=== PATIENT | female | born 1970 | race Caucasian/White ===

== ENCOUNTER 2016-12-10 09:03 | Emergency (ER) | payer MEDICARE, MEDICAID ==
[2016-12-10] MEDS ORDERED: HYDROmorphone 2 MG/ML SDV IVPUSH ONE (10:10)
[2016-12-10] MEDS ORDERED: Ondansetron 4 MG/2 ML SDV IVPUSH ONE (10:10)
[2016-12-10] MEDS ORDERED: Sodium Chloride 0.9% 10 ML Syringe FLUSH PRN (10:14)
[2016-12-10] MEDS ORDERED: Sodium Chloride 0.9% 1,000 ML IV ONE ×2 (10:55→11:15)
[2016-12-10] MEDS ORDERED: HYDROmorphone 2 MG/ML SDV IV ONE (11:14)
[2016-12-10] MEDS ORDERED: LORazepam 2 MG/ML MDV IVPUSH STA (12:28)
[2016-12-10] MEDS ORDERED: Lidocaine 2% Jelly 5 ML Urojet MUCMEM ONE (12:36)
[2016-12-10] MEDS ORDERED: Pantoprazole 40 MG Vial IVPUSH ONE (13:19)
[2016-12-10] MEDS ORDERED: Sodium Chloride 0.9% 1,000 ML IV SCH (13:45)
[2016-12-10 16:39] VITALS: BP 135/78
--- NOTE | 2016-12-12 14:04 | ER ---
DATE SEEN: 12/10/2016 TIME SEEN: The patient was seen at 1110 hours. HISTORY OF PRESENT ILLNESS: This 46-year-old long-term diabetic has had 10 years pacemaker for gastric outlet obstruction - gastric pacemaker for gastroparesis, has significant autonomic gastrointestinal dysfunction also. 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 She has had many years of diabetes. At 0400 hours, had onset of severe pain. She had a supper of hot meat sandwiches, which her ate and he did not get sick. She has had vomiting, 5 episodes since 0400 hours, and diarrhea several times. She has no control of her bowel movements. She notes that she has bowel movements more frequently because of autonomic paresis from her diabetes. Her glucoses run from 160 to 190s. In general, does reasonably well. She has an insulin pump and takes 50 units of Humalog daily per 24 hours. Today, she has symptoms of more significant bloating and nausea, but she has it intermittently, but is worse than usual. PAST MEDICAL HISTORY: x2. 2, para 2-0-0-2. She still has her appendix, gallbladder, and no previous bowel surgery. She has had diabetes for 30 years. REVIEW OF SYSTEMS: Otherwise negative. She denies headache, neck stiffness, fever, chills, cough, sinusitis, sore throat, or shortness of breath. No abdominal discomfort, no diarrhea except for that noted above, and also no urine retention. Denies frequency, urgency, or dysuria. She has had renal stones in the past, but denies myalgias, except for when her glucose is not in control. Denies arthritis. No psychiatric symptoms of depression. PHYSICAL EXAMINATION: VITAL SIGNS: Blood pressure 123/71, heart rate 89 and regular, respirations 20, oxygen saturation 100% on room air, and temperature 36.2 centigrade. GENERAL: The patient is alert. She has marked pain, is markedly obese, moderately distraught. She is lying on her side in a position. HEENT: PERRLA intact. Pharynx without abnormality. Mucosa is dry. NECK: Supple. No thyromegaly or masses in neck. No cervical adenopathy. LUNGS: Clear to auscultation without rales, rhonchi, or wheezes. HEART: S1, S2. No murmur. No irregular rate or rhythm. Sinus tachycardia noted. ABDOMEN: Generalized abdominal discomfort with moderate guarding. Mild heel drop discomfort. No heel tap discomfort. Mild rebound. No CVA percussion tenderness. PELVIC: Not performed. RECTAL: Not performed. EXTREMITIES: Lower extremities without edema. Deep tendon reflexes in upper and lower extremities symmetrical 1+, normoactive. NEUROLOGIC: Cranial nerves 2 through 12 intact. Oriented x3. She is very appropriate. DIAGNOSTIC DATA: CT of the abdomen demonstrated distention of the stomach with extensive fluid in the stomach. She had duodenitis with mild dilation of the duodenum, mild dilation of small bowel loops with moderate air-fluid levels. Transition point noted in the right lower quadrant. Findings consistent with partial small bowel obstruction with some gastric ileus/paresis superimposed on small bowel obstruction. Adhesions versus subtle internal hernia cannot be distinguished. PLAN: The patient to discuss with surgeon at [place] and transfer for further care. NG tube was placed. The patient received 2 doses of Dilaudid and still has pain and discomfort and also Ativan 1 mg given before transfer to [place]. The patient will be transferred by ambulance. She received 2000 plus mL of saline. LABORATORY FINDINGS: White count 19,500, PMNs 81, lymphocytes 14, monos 5, no bands, no eosinophils, and hemoglobin 13.7. Sodium 134, potassium 4.2, chloride 101, bicarb 24, BUN 28, creatinine 1.4, GFR 40, glucose 387, and hemoglobin A1c 9.5. ASSESSMENT: Gastroparesis with pacemaker, 30 years insulin-dependent diabetic, 10 years with a gastric pacemaker with pertinent gastroparesis. The patient currently has neutrophilic leukocytosis with hyperglycemia. No osmotic diabetic ketoacidosis with fair control of diabetes at 9.5, which suggests probably her glucose runs around 200. Mild BUN and creatinine changes suggest GFR of 40% with chronic kidney disease stage III. Mild dehydration. The patient was flushed with fluid. She has not had her insulin, will give a dose of insulin before she leaves. Also, the patient's status was discussed with the hospitalist at [facility], and also Dr. Womack will be calling us back, the surgeon. As yet I have not heard from him at 1245 hours, but expect his call will be coming shortly. Arrangements made for transfer. /[id number] [id number] GOVIND/BLANCA
== END 2016-12-10 14:04 ==
LOC: FB.ED 09:03
DX: E11.43 Type 2 diabetes mellitus with diabetic autonomic (poly)neuropathy (principal); K31.84 Gastroparesis; E86.0 Dehydration; D72.828 Other elevated white blood cell count; E11.65 Type 2 diabetes mellitus with hyperglycemia; E11.22 Type 2 diabetes mellitus with diabetic chronic kidney disease; N18.3 Chronic kidney disease, stage 3 (moderate)
CPT/HCPCS: 36415; 43752; 74176; 80053; 82962; 83036; 83605; 85025; 96361; 96374; 96375; 96376; 99285; C9113; J1170; J2060; J2405; J7040

== ENCOUNTER 2017-05-27 13:25 | Emergency (ER) | payer MEDICARE, MEDICAID ==
[2017-05-27] MEDS ORDERED: Albuterol/Ipratropium 3.0-0.5 MG/3 ML Neb Soln NEB ONE (14:03)
[2017-05-27] MEDS ORDERED: Ketorolac 60 MG/2 ML SDV IM ONE (14:04)
[2017-05-27] MEDS ORDERED: traMADol 50 MG Tab PO ONE (14:18)
--- NOTE | 2017-05-27 15:28 | EDM.PDOC ---
ED HPI GENERAL MEDICAL PROBLEM - General Chief Complaint: Genitourinary Problem Stated Complaint: POSSIBLE KIDNEY INFECTION Time Seen by Provider: 05/27/17 13:25 Source of Information: Reports: Patient History Limitations: Reports: No Limitations - History of Present Illness INITIAL COMMENTS - FREE TEXT/NARRATIVE: 46 y.o.w.f with multiple medical issues, including Metabolic syndrome, came to the ed due to a cough, SOB and right sided flank pain. Pt has kidney stones in the past. Her "breathing machine" is broken. Because of that, she could not give herself a Albuterol inhaler at home. Pt denied trauma. No N/V/D. or any other acute medical issues. BP 135/74 pulse 87 RR 18 Pulse ox 98% on RA temp 36.8 Onset Date: 05/27/17 Onset Time: 09:00 Duration: Hour(s):, Intermittent Location: Reports: Back Quality: Reports: Burning, Dull, Pressure Severity: Moderate Improves with: Reports: Rest Worsens with: Reports: Movement Context: Reports: Other (Kidenystones in the past) Associated Symptoms: Reports: Cough, Shortness of Breath - Related Data Allergies Allergy/AdvReac Type Severity Reaction Status Date / Time adhesive Allergy Itching Verified 05/27/17 16:19 Home Meds: Home Meds Aspirin 325 mg PO DAILY 12/03/12 [History] Cholecalciferol (Vitamin D3) [Vitamin D3] 1,000 unit PO DAILY 12/03/12 [History] Cilostazol [Pletal] 100 mg PO BID 12/03/12 [History] Esomeprazole [NexIUM] 40 mg PO BID 12/03/12 [History] Furosemide [Lasix] 20 mg PO DAILY 12/03/12 [History] Glucagon,Human Recombinant [Glucagen] 1 mg IJ ONETIME PRN 12/03/12 [History] Pramipexole [Mirapex] 0.5 mg PO BEDTIME 12/03/12 [History] Simvastatin [Zocor] 20 mg PO BEDTIME 12/03/12 [History] cloNIDine [Catapres] 0.2 tab PO BEDTIME 12/03/12 [History] lamoTRIgine [LaMICtal] 150 mg PO BEDTIME 12/03/12 [History] Lisinopril [Prinivil] 2.5 mg PO DAILY 09/13/15 [History] Venlafaxine [Effexor XR] 150 tab PO BID 09/13/15 [History] Insulin Lispro [Humalog] 1 unit SUBCUT ASDIRECTED 11/26/15 [History] Lurasidone HCl [Latuda] 40 mg PO DAILY PRN 11/26/15 [History] Dextroamphetamine/Amphetamine [Dextroamp-Amphet ER] 20 mg PO DAILY 12/10/16 [ History] Dextroamphetamine/Amphetamine [Dextroamp-Amphet ER] 30 mg PO DAILY 12/10/16 [ History] Albuterol Sulfate [Proair Hfa] 2 puff INH Q4H PRN 05/27/17 [History] Budesonide [Pulmicort] 1 ampule INH BID 05/27/17 [History] Ciprofloxacin HCl [Cipro] 500 mg PO BID #20 tablet 05/27/17 [Rx] Dextroamphetamine/Amphetamine [Dextroamp-Amphetamin 20 mg Tab] 20 mg PO 1800 03/15 [History] traMADol [Ultram] 50 mg PO Q4H PRN #10 tab 05/27/17 [Rx] Past Medical History HEENT History: Reports: None Cardiovascular History: Reports: High Cholesterol, Hypertension Respiratory History: Reports: Asthma Gastrointestinal History: Reports: GERD, Other (See Below) Other Gastrointestinal History: hx gastroparesis, has gastric pacemaker Genitourinary History: Reports: Renal Disease, UTI, Recurrent, Other (See Below) Other Genitourinary History: 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/BYN History: Musculoskeletal History: Reports: Fracture, Fibromyalgia Other Musculoskeletal History: hx L ankle fx, L wrist, L finger growth place Neurological History: Reports: Concussion, Migraines, Neuropathy, Diabetic Psychiatric History: Reports: ADHD, Anxiety, Bipolar, Depression, Psych Hospitalization(s) Endocrine/Metabolic History: Reports: Diabetes, Type I, Obesity/BMI 30+, Other ( See Below) Other Endocrine/Metabolic History: has insulin pump Hematologic History: Reports: Anemia, B12 Deficiency - Infectious Disease History Infectious Disease History: Reports: Chicken Pox - Past Surgical History HEENT Surgical History: Reports: Adenoidectomy, Eye Surgery, Tonsillectomy GI Surgical History: Reports: Colonoscopy, EGD Female Surgical History: Reports: Section Other Female Surgeries/Procedures: CS x 2 Musculoskeletal Surgical History: Reports: Other (See Below) Other Musculoskeletal Surgeries/Procedures:: 2&3rd toe surg to R foot, L 2nd toe surgery, Social & Family History - Family History Family Medical History: Noncontributory - Tobacco Use Smoking Status *Q: Never Smoker Second Hand Smoke Exposure: No - Caffeine Use Caffeine Use: Reports: Coffee, Soda - Recreational Drug Use Recreational Drug Use: No ED ROS GENERAL - Review of Systems Review Of Systems: See Below Constitutional: Reports: No Symptoms HEENT: Reports: No Symptoms Respiratory: Reports: Shortness of Breath, Wheezing, Cough Cardiovascular: Reports: No Symptoms Endocrine: Reports: No Symptoms GI/Abdominal: Reports: Other (right flank pain) : Reports: No Symptoms Musculoskeletal: Reports: No Symptoms Skin: Reports: No Symptoms Neurological: Reports: No Symptoms Psychiatric: Reports: No Symptoms Hematologic/Lymphatic: Reports: No Symptoms Immunologic: Reports: No Symptoms ED EXAM, RENAL/ - Physical Exam Exam: See Below Exam Limited By: No Limitations General Appearance: Alert, WD/WN, Moderate Distress Eye Exam: Bilateral Eye: Normal Inspection Ears: Normal External Exam Nose: Normal Inspection Throat/Mouth: Normal Lips, No Airway Compromise Head: Atraumatic, Normocephalic Neck: Normal Inspection, Supple, Non-Tender, Full Range of Motion Respiratory/Chest: Respiratory Distress, Decreased Breath Sounds, Rhonchi, Wheezing, Prolonged Expiration Cardiovascular: Normal Peripheral Pulses, Regular Rate, Rhythm, No Edema GI/Abdominal: Normal Bowel Sounds, Soft, Non-Tender, No Organomegaly, No Distention, No Abnormal Bruit (Female) Exam: Deferred Rectal (Female) Exam: Deferred Back Exam: Normal Inspection, Full Range of Motion Extremities: Normal Inspection, Normal Range of Motion, Non-Tender, No Pedal Edema, Normal Capillary Refill Neurological: Alert, Oriented, CN II-XII Intact, Normal Cognition, Normal Gait, No Motor/Sensory Deficits Psychiatric: Normal Affect, Normal Mood Skin Exam: Warm, Dry, Intact, Normal Color, No Rash Lymphatic: No Adenopathy Course - Vital Signs Text/Narrative:: 46 y.o.w.f with multiple medical issues, including Metabolic syndrome, came to the ed due to a cough, SOB and right sided flank pain. Pt has kidney stones in the past. Her "breathing machine" is broken. Because of that, she could not give herself a Albuterol inhaler at home. Pt denied trauma. No N/V/D. or any other acute medical issues. BP 135/74 pulse 87 RR 18 Pulse ox 98% on RA temp 36.8 PE: Obese 46 y.o. f with sob and r flank pain Imaging: CXR: NAD CT abd/pelvis: small kidneystone left side, Gastric pacemaker , Constipation, enlarged Uterus Labs: Nl WBC, BUN 19, Cr 1.3 GFR 44 A1C 9.9 Glc 147 UA: Micr. Hematuria U Glc > 1000 Impression: Kidney stone left side, acute bronchitis, Asthma exacerbation, low back pain. Constipation Tx: Duoneb, Levoqine, Ultram Reeam: Improved Plan: D/C with instructions Last Recorded V/S: Last Vital Signs Temp 36.8 C 05/27/17 16:13 Pulse 86 05/27/17 16:13 Resp 18 05/27/17 16:13 BP 99/56 L 05/27/17 16:13 Pulse Ox 99 05/27/17 16:13 - Orders/Labs/Meds Orders: Active Orders 24 hr Category Date Time Status Accu Check [Blood Glucose Check, Bedside] [RC] ONETIME Care 05/27/17 13:53 Active RT Aerosol Therapy [RC] ASDIRECTED Care 05/27/17 14:04 Active Abdomen Pelvis wo Cont [CT] Stat Exams 05/27/17 15:19 Taken Chest 2V [CR] Stat Exams 05/27/17 14:03 Taken GLUCOSE,POC [POC] Routine Lab 05/27/17 13:55 Received UA W/MICROSCOPIC [URIN] Stat Lab 05/27/17 13:50 Ordered Labs: Laboratory Tests 05/27/17 05/27/17 05/27/17 Range/Units 13:50 14:34 14:45 WBC 7.4 (4.5-12.0) X10-3/uL RBC 4.32 (3.23-5.20) x10(6)uL Hgb 13.4 (11.5-15.5) g/dL Hct 39.5 (30.0-51.3) % MCV 91.4 (80-96) fL MCH 31.0 (27.7-33.6) pg MCHC 33.9 (32.2-35.4) g/dL RDW 13.4 (11.5-15.5) % Plt Count 203 (125-369) X10(3)uL MPV 9.0 (7.4-10.4) fL Neut % (Auto) 51.0 (46-82) % Lymph % (Auto) 39.3 H (13-37) % [place] % (Auto) 8.9 (4-12) % Eos % (Auto) 0 L (1.0-5.0) % Baso % (Auto) 1 (0-2) % Neut # (Auto) 3.6 (1.6-8.3) # Lymph # (Auto) 2.9 (0.6-5.0) # [place] # (Auto) 0.7 (0.0-1.3) # Eos # (Auto) 0.0 (0.0-0.8) # Baso # (Auto) 0.1 (0.0-0.2) # Sodium 142 (135-145) mmol/L Potassium 3.7 (3.5-5.3) mmol/L Chloride 102 (100-110) mmol/L Carbon Dioxide 31 (21-32) mmol/L BUN 19 H (7-18) mg/dL Creatinine 1.3 H (0.55-1.02) mg/dL Est Cr Clr Drug Dosing TNP Estimated GFR (MDRD) 44 L (>60) BUN/Creatinine Ratio 14.6 (9-20) Glucose 146 H (80-116) mg/dL Hemoglobin A1c (4.5-6.2) % Calcium 9.3 (8.6-10.2) mg/dL Total Bilirubin 0.2 (0.1-1.3) mg/dL Direct Bilirubin 0.06 L (0.10-0.20) mg/dL AST 12 (5-25) IU/L ALT 17 (12-36) U/L Alkaline Phosphatase 148 H (56-112) IU/L Total Protein 7.4 (6.0-8.0) g/dL Albumin 3.3 L (3.5-5.2) g/dL Amylase 23 L (25-115) U/L Urine Color Yellow (YELLOW) Urine Appearance Clear (CLEAR) Urine pH 5.0 (5.0-6.5) Ur Specific [place] 1.010 (1.010-1.025) Urine Protein Negative (NEGATIVE) mg/dL Urine Glucose (UA) >1000 H (NEGATIVE) mg/dL Urine Ketones Negative (NEGATIVE) mg/dL Urine Occult Blood Small (NEGATIVE) Urine Nitrite Negative (NEGATIVE) Urine Bilirubin Negative (NEGATIVE) Urine Urobilinogen Normal (NEGATIVE) mg/dL Ur Leukocyte Esterase Negative (NEGATIVE) Urine RBC 10-20 H (0) Urine WBC 0-5 (0) Ur Squamous Epith Cells Few H (NS,R,O) Urine Bacteria Few H (NS) 05/27/17 Range/Units 14:45 WBC (4.5-12.0) X10-3/uL RBC (3.23-5.20) x10(6)uL Hgb (11.5-15.5) g/dL Hct (30.0-51.3) % MCV (80-96) fL MCH (27.7-33.6) pg MCHC (32.2-35.4) g/dL RDW (11.5-15.5) % Plt Count (125-369) X10(3)uL MPV (7.4-10.4) fL Neut % (Auto) (46-82) % Lymph % (Auto) (13-37) % [place] % (Auto) (4-12) % Eos % (Auto) (1.0-5.0) % Baso % (Auto) (0-2) % Neut # (Auto) (1.6-8.3) # Lymph # (Auto) (0.6-5.0) # [place] # (Auto) (0.0-1.3) # Eos # (Auto) (0.0-0.8) # Baso # (Auto) (0.0-0.2) # Sodium (135-145) mmol/L Potassium (3.5-5.3) mmol/L Chloride (100-110) mmol/L Carbon Dioxide (21-32) mmol/L BUN (7-18) mg/dL Creatinine (0.55-1.02) mg/dL Est Cr Clr Drug Dosing Estimated GFR (MDRD) (>60) BUN/Creatinine Ratio (9-20) Glucose (80-116) mg/dL Hemoglobin A1c 9.9 H (4.5-6.2) % Calcium (8.6-10.2) mg/dL Total Bilirubin (0.1-1.3) mg/dL Direct Bilirubin (0.10-0.20) mg/dL AST (5-25) IU/L ALT (12-36) U/L Alkaline Phosphatase (56-112) IU/L Total Protein (6.0-8.0) g/dL Albumin (3.5-5.2) g/dL Amylase (25-115) U/L Urine Color (YELLOW) Urine Appearance (CLEAR) Urine pH (5.0-6.5) Ur Specific [place] (1.010-1.025) Urine Protein (NEGATIVE) mg/dL Urine Glucose (UA) (NEGATIVE) mg/dL Urine Ketones (NEGATIVE) mg/dL Urine Occult Blood (NEGATIVE) Urine Nitrite (NEGATIVE) Urine Bilirubin (NEGATIVE) Urine Urobilinogen (NEGATIVE) mg/dL Ur Leukocyte Esterase (NEGATIVE) Urine RBC (0) Urine WBC (0) Ur Squamous Epith Cells (NS,R,O) Urine Bacteria (NS) Meds: Medications Discontinued Medications Generic Name Dose Route Start Last Admin Trade Name Freq PRN Reason Stop Dose Admin Albuterol/Ipratropium 3 ml 05/27/17 14:03 05/27/17 14:13 Duoneb 3.0-0.5 Mg/3 Ml NEB 05/27/17 14:04 3 ml ONETIME ONE Administration Ketorolac Tromethamine 60 mg 05/27/17 14:04 05/27/17 14:36 Toradol IM 05/27/17 14:05 Not Given ONETIME ONE Levofloxacin 500 mg 05/27/17 16:45 05/27/17 16:49 Levaquin PO 05/27/17 16:46 500 mg ONETIME STA Administration Tramadol HCl 100 mg 05/27/17 14:18 05/27/17 14:38 Ultram PO 05/27/17 14:19 100 mg ONETIME ONE Administration Departure - Departure Time of Disposition: 16:34 Disposition: Home, Self-Care 01 Condition: Good Clinical Impression: Microscopic hematuria, Bronchitis Asthma attack Qualifiers: Asthma severity: moderate Asthma persistence: unspecified Qualified Code(s): J45.901 - Unspecified asthma with (acute) exacerbation Constipation Qualifiers: Constipation type: slow transit constipation Qualified Code(s): K59.01 - Slow transit constipation - Discharge Information Prescriptions: Ciprofloxacin HCl [Cipro] 500 mg PO BID #20 tablet traMADol [Ultram] 50 mg PO Q4H PRN #10 tab PRN Reason: for severe pain only Instructions: Kidney Stones, Rwpt-ti-Lkow, Tramadol tablets, Ciprofloxacin tablets Referrals: Dylan Molina MD [Primary Care Provider] - Forms: ED Department Discharge Additional Instructions: Please increase water intake, please take the meds as recommended, please use your inhaler for cough and shortness of breath, please f/u in 3-5 days to repeat the urine analysis, please follow up with your PMD, come back to the ed if your symptoms get worse acutely - My Orders Last 24 Hours: My Active Orders 05/27/17 13:50 UA W/MICROSCOPIC [URIN] Stat 05/27/17 13:53 Accu Check [Blood Glucose Check, Bedside] [RC] ONETIME 05/27/17 13:55 GLUCOSE,POC [POC] Routine 05/27/17 14:03 Chest 2V [CR] Stat 05/27/17 14:04 RT Aerosol Therapy [RC] ASDIRECTED 05/27/17 15:19 Abdomen Pelvis wo Cont [CT] Stat - Assessment/Plan Last 24 Hours: My Active Orders 05/27/17 13:50 UA W/MICROSCOPIC [URIN] Stat 05/27/17 13:53 Accu Check [Blood Glucose Check, Bedside] [RC] ONETIME 05/27/17 13:55 GLUCOSE,POC [POC] Routine 05/27/17 14:03 Chest 2V [CR] Stat 05/27/17 14:04 RT Aerosol Therapy [RC] ASDIRECTED 05/27/17 15:19 Abdomen Pelvis wo Cont [CT] Stat
[2017-05-27 16:33] VITALS: BP 99/56
[2017-05-27] MEDS ORDERED: Levofloxacin 500 MG Tab PO STA (16:45)
--- NOTE | 2017-05-28 14:39 | CR ---
INDICATION: Cough. CHEST: PA and lateral views of the chest 05/27/2017 were compared with 2009. The heart, mediastinum, and bony thorax were unremarkable. No consolidating pneumonia or effusion could be identified. IMPRESSION: No acute process. MTDD
== END 2017-05-27 16:45 | disposition home or self-care (01) ==
LOC: FB.ED 13:25
DX: N20.0 Calculus of kidney (principal); J20.9 Acute bronchitis, unspecified; J45.901 Unspecified asthma with (acute) exacerbation; M54.5 Low back pain; K59.00 Constipation, unspecified; E78.00 Pure hypercholesterolemia, unspecified; I10 Essential (primary) hypertension; E10.9 Type 1 diabetes mellitus without complications; Z91.048 Other nonmedicinal substance allergy status; Z79.82 Long term (current) use of aspirin; Z79.899 Other long term (current) drug therapy
CPT/HCPCS: 36415; 71046; 74176; 80048; 80076; 81001; 82150; 82962; 83036; 85025; 94640; 99284; A9270-GY; J7620

== ENCOUNTER 2018-10-28 14:35 | Emergency (ER) | payer MEDICARE, MEDICAID ==
[2018-10-28] MEDS ORDERED: Lidocaine 1% 20 ML MDV INFILT ONE (14:36)
--- NOTE | 2018-10-28 15:39 | EDM.PDOC ---
ED HPI GENERAL MEDICAL PROBLEM - General Chief Complaint: General Stated Complaint: ABSCESS TOOTH Time Seen by Provider: 10/28/18 15:35 Source of Information: Reports: Patient History Limitations: Reports: No Limitations - History of Present Illness INITIAL COMMENTS - FREE TEXT/NARRATIVE: 47-year-old female who had some problems with her left upper tooth approximately 2-3 weeks ago and had a filling placed at that time. Last week she was getting her teeth cleaned and she had some soreness and pain in her left upper tooth and was told by the dentist that there was an infection there but he would have to do a root canal and would have to do that later she was not placed on any antibiotics at that time and it was fine except for some mild pain until Sunday when she began to notice redness and swelling in the area above the tooth and that has progressively worsened until she has a "bump" above the tooth that is tender and appears to have fluid. She has pain and her left upper jaw and tooth area that she rates as a 4/10. It is an aching and throbbing pain. No has generalized malaise with no measured fever but she has had chills. No nausea or vomiting. She has been eating and drinking normally. She is a diabetic and her blood sugars have been in the 60-140 range. There are no other associated signs or symptoms. There are no other modifying factors. 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 L upper tooth Pain Score (Numeric/FACES): 4 - Related Data Allergies Allergy/AdvReac Type Severity Reaction Status Date / Time adhesive Allergy Itching Verified 10/28/18 14:44 Home Meds: Home Meds Aspirin 325 mg PO DAILY 12/03/12 [History] Cholecalciferol (Vitamin D3) [Vitamin D3] 1,000 unit PO DAILY 12/03/12 [History] Cilostazol [Pletal] 100 mg PO BID 12/03/12 [History] Esomeprazole [NexIUM] 40 mg PO BID 12/03/12 [History] Furosemide [Lasix] 20 mg PO DAILY 12/03/12 [History] Glucagon,Human Recombinant [Glucagen] 1 mg IJ ONETIME PRN 12/03/12 [History] Pramipexole [Mirapex] 0.5 mg PO BEDTIME 12/03/12 [History] Simvastatin [Zocor] 20 mg PO BEDTIME 12/03/12 [History] cloNIDine [Catapres] 0.2 tab PO BEDTIME 12/03/12 [History] lamoTRIgine [LaMICtal] 150 mg PO BEDTIME 12/03/12 [History] Lisinopril [Prinivil] 2.5 mg PO DAILY 09/13/15 [History] Venlafaxine [Effexor XR] 150 tab PO BID 09/13/15 [History] Insulin Lispro [Humalog] 1 unit SUBCUT ASDIRECTED 11/26/15 [History] Lurasidone HCl [Latuda] 40 mg PO DAILY PRN 11/26/15 [History] Dextroamphetamine/Amphetamine [Dextroamp-Amphet ER] 20 mg PO DAILY 12/10/16 [ History] Dextroamphetamine/Amphetamine [Dextroamp-Amphet ER] 30 mg PO DAILY 12/10/16 [ History] Albuterol Sulfate [Proair Hfa] 2 puff INH Q4H PRN 05/27/17 [History] Budesonide [Pulmicort] 1 ampule INH BID PRN 05/27/17 [History] Dextroamphetamine/Amphetamine [Dextroamp-Amphetamin 20 mg Tab] 20 mg PO 1800 03/15 [History] Amoxicillin/Potassium Clav [Augmentin 875-125 Tablet] 1 each PO BID 9 Days #18 tablet 10/28/18 [Rx] Past Medical History Cardiovascular History: Reports: High Cholesterol, Hypertension Respiratory History: Reports: Asthma Gastrointestinal History: Reports: Chronic Diarrhea, GERD, Other (See Below) Other Gastrointestinal History: hx gastroparesis, has gastric pacemaker Genitourinary History: Reports: Renal Calculus, Renal Disease, UTI, Recurrent, Other (See Below) Other Genitourinary History: Chronic kidney disease 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: Musculoskeletal History: Reports: Arthritis, Back Pain, Chronic, Fracture, Fibromyalgia Other Musculoskeletal History: hx L ankle fx, L wrist, L finger growth place Neurological History: Reports: Concussion, Migraines, Neuropathy, Diabetic, Seizure Other Neuro History: hypoglycemic seizures Psychiatric History: Reports: ADHD, Anxiety, Bipolar, Depression, Psych Hospitalization(s) Endocrine/Metabolic History: Reports: Diabetes, Type I, Obesity/BMI 30+, Vitamin D Deficiency, Other (See Below) Other Endocrine/Metabolic History: has insulin pump Hematologic History: Reports: Anemia, B12 Deficiency - Infectious Disease History Infectious Disease History: Reports: Chicken Pox - Past Surgical History HEENT Surgical History: Reports: Adenoidectomy, Eye Surgery, Tonsillectomy GI Surgical History: Reports: Colonoscopy, EGD, Other (See Below) Other GI Surgeries/Procedures: gastric pacemaker Female Surgical History: Reports: Section Other Female Surgeries/Procedures: CS x 2 Neurological Surgical History: Reports: None Musculoskeletal Surgical History: Reports: Other (See Below) Other Musculoskeletal Surgeries/Procedures:: 2&3rd toe surg to R foot, L 2nd toe surgery, Social & Family History - Tobacco Use Smoking Status *Q: Former Smoker Years of Tobacco use: 20 Used Tobacco, but Quit: Yes Month/Year Tobacco Last Used: 2012 - Caffeine Use Caffeine Use: Reports: Soda, Tea - Alcohol Use Alcohol Use History: No - Recreational Drug Use Recreational Drug Use: No - Living Situation & Occupation 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) ED ROS GENERAL - Review of Systems Review Of Systems: See Below Constitutional: Reports: Chills, Malaise HEENT: Reports: Dental Pain (With swelling and redness above left upper tooth) Respiratory: Reports: No Symptoms Cardiovascular: Reports: No Symptoms Endocrine: Reports: No Symptoms GI/Abdominal: Reports: No Symptoms : Reports: No Symptoms Musculoskeletal: Reports: No Symptoms Skin: Reports: No Symptoms Neurological: Reports: No Symptoms Hematologic/Lymphatic: Reports: No Symptoms Immunologic: Reports: No Symptoms ED EXAM, GENERAL - Physical Exam Exam: See Below Exam Limited By: No Limitations General Appearance: Alert, WD/WN, Mild Distress Eye Exam: Bilateral Eye: EOMI, Normal Inspection, PERRL Ears: Normal External Exam, Hearing Grossly Normal Ear Exam: Bilateral Ear: Auricle Normal Nose: Normal Inspection, Normal Mucosa, No Blood Throat/Mouth: Normal Voice, No Airway Compromise, Other (Pointing abscess in subcutaneous oral mucosal tissue above the left upper incisor. This is tender with palpation.) Head: Atraumatic, Facial Swelling (Left upper lip and nasal area.) Neck: Normal Inspection, Supple, Non-Tender, Full Range of Motion Respiratory/Chest: No Respiratory Distress, Lungs Clear, Normal Breath Sounds, No Accessory Muscle Use, Chest Non-Tender Cardiovascular: Normal Peripheral Pulses, Regular Rate, Rhythm, No Murmur Peripheral Pulses: 2+: Radial (L), Radial (R) GI/Abdominal: Normal Bowel Sounds, Soft, Non-Tender, No Mass Back Exam: Normal Inspection Extremities: Normal Inspection, Normal Range of Motion, Non-Tender, Normal Capillary Refill, No Pedal Edema Neurological: Alert, Oriented, CN II-XII Intact, Normal Cognition, No Motor/ Sensory Deficits Skin Exam: Warm, Dry, Intact, Normal Color, No Rash ED GENERAL MEDICAL PROCEDURES - Additional/Other Procedure(s) Other (Free Text) Procedure(s): After informed verbal consent was obtained from the patient, the area around the pointing abscess in the left upper maxillary oral mucosa was anesthetized with 1% lidocaine 2 mL's. There was good anesthesia and no complications. Using an 11 blade scalpel, the abscess was incised and pus was expressed at this point I had the patient rinse her mouth copiously with water. She tolerated the procedure well and there were no apparent complications. Course - Vital Signs Last Recorded V/S: Last Vital Signs Temp 36.7 C 10/28/18 14:39 Pulse 95 10/28/18 14:39 Resp 18 10/28/18 14:39 BP 137/80 10/28/18 14:39 Pulse Ox 100 10/28/18 14:39 - Orders/Labs/Meds Orders: Active Orders 24 hr Category Date Time Status Amoxicillin/Clavulanate K [Augmentin 875 MG/125 MG] Med 10/28/18 15:54 Once 2 tab PO ONETIME ONE - Re-Assessments/Exams Free Text/Narrative Re-Assessment/Exam: 10/28/18 16:04: Patient with left upper dental abscess that was I&D in the emergency department. She will be placed on Augmentin 875 by mouth twice a day for 10 days. She is to follow-up with her dentist. Departure - Departure Time of Disposition: 16:10 Disposition: Home, Self-Care 01 Condition: Good (Improved) Clinical Impression: Dental abscess, Facial cellulitis - Discharge Information Prescriptions: Amoxicillin/Potassium Clav [Augmentin 875-125 Tablet] 1 each PO BID 9 Days #18 tablet Instructions: Cellulitis, Adult, [id number], Dental Abscess, [id number] Referrals: Dylan Molina MD [Primary Care Provider] - Forms: ED Department Discharge Additional Instructions: You have an abscess associated with your left upper incisor. You also have a cellulitis or a skin infection of the left upper lip and facial area. Take Tylenol and ibuprofen as needed for pain. Medication as prescribed (Augmentin 875 mg). You should take probiotics or eat yogurt daily while you are on the antibiotics. Drink plenty of fluids. See a dentist as soon as she as you can arrange. Back to the emergency department for trouble breathing, unrelenting vomiting, inability to swallow liquids or any other concerning sign or symptom. - My Orders Last 24 Hours: My Active Orders 10/28/18 15:54 Amoxicillin/Clavulanate K [Augmentin 875 MG/125 MG] 2 tab PO ONETIME ONE - Assessment/Plan Last 24 Hours: My Active Orders 10/28/18 15:54 Amoxicillin/Clavulanate K [Augmentin 875 MG/125 MG] 2 tab PO ONETIME ONE
[2018-10-28] MEDS: Amoxicillin/Clavulanate K 875-125 MG Tab PO ONE (16:14)
[2018-10-28] MEDS ORDERED: Amoxicillin/Clavulanate K 875-125 MG Tab PO ONE ×2 (16:14)
[2018-10-28 16:16] VITALS: BP 101/66; PULSE 82
[2018-10-30] MEDS: Amoxicillin/Clavulanate K 875-125 MG Tab PO ONE (10:41)
== END 2018-10-28 16:28 | disposition home or self-care (01) ==
LOC: FB.ED 14:35
DX: K04.7 Periapical abscess without sinus (principal); L03.211 Cellulitis of face; K21.9 Gastro-esophageal reflux disease without esophagitis; I12.9 Hypertensive chronic kidney disease with stage 1 through stage 4 chronic kidney disease, or unspecified chronic kidney disease; E10.22 Type 1 diabetes mellitus with diabetic chronic kidney disease; N18.9 Chronic kidney disease, unspecified; F32.9 Major depressive disorder, single episode, unspecified; F41.9 Anxiety disorder, unspecified; E78.00 Pure hypercholesterolemia, unspecified; J45.909 Unspecified asthma, uncomplicated; Z91.048 Other nonmedicinal substance allergy status; Z79.82 Long term (current) use of aspirin; Z79.899 Other long term (current) drug therapy; Z87.442 Personal history of urinary calculi; Z87.891 Personal history of nicotine dependence
CPT/HCPCS: 41800; 99282; A9270; J2001; 10060